=== PATIENT | male | born 1950 | race Caucasian/White ===

== ENCOUNTER 2016-10-02 08:41 | Inpatient (IN) | payer BC ==
[2016-10-02] VITALS (7 sets, daily range): BP systolic 129–143; BP diastolic 63–86
[~2016-10-02] VITALS: Ht 180.3 cm; Wt 93.2 kg
[2016-10-02] MEDS ORDERED: BACTRIM DS1 TAB PO (08:55)
[2016-10-02] MEDS ORDERED: KEFLEX500 MG PO (08:56)
[2016-10-02 10:27] LABS: HEMATOCRIT 45.4 % (39.0-50.0); HEMOGLOBIN 15.1 g/dl (14.0-18.0); IMMATURE GRANULOCYTES 2.1 % (0.0-1.0); MEAN CELL VOLUME 95.2 fL CALC (80.0-100.0); MEAN CORPUSCULAR HGB 31.7 pG CALC (26.0-32.0); MEAN CORPUSCULAR HGB CONC 33.3 g/L CALC (32.0-36.0); NEUT# 16.55 thou/uL (1.82-7.42); RED BLOOD COUNT 4.77 mill/uL (4.70-6.10); RED CELL DISTRI WIDTH 13.1 % (11.5-15.5)
[2016-10-02 10:48] LABS: ALBUMIN 3.7 g/dL (3.2-5.0); ALKALINE PHOSPHATASE 138 u/l (38-126); ANION GAP 17 (6-22 (CALC)); BUN 19 mg/dL (8-23); BUN/CREATININE RATIO 23 (12-20 (CALC)); CALCIUM 8.9 mg/dL (8.4-10.2); CARBON DIOXIDE 24 mmol/l (22-30); CHLORIDE 100 mmol/l (95-108); CREATININE 0.8 mg/dL (0.7-1.3); GFR > 60 ML/MIN (>=60 (CALC)); GFR FOR AFR.AMER. > 60 ML/MIN (>=60 (CALC)); GLUCOSE 107 mg/dL (82-115); SGOT/AST 30 u/l (19-48); SGPT/ALT 43 u/l (11-66); SODIUM 137 mmol/l (137-146); TOTAL PROTEIN 6.8 g/dL (6.3-8.2)
[2016-10-02] MEDS ORDERED: NIASPAN500 MG (12:23)
[2016-10-03 03:30] VITALS: BP 119/76
[2016-10-03 08:03] VITALS: BP 128/78
[2016-10-03 15:04] VITALS: BP 113/73
[2016-10-03 19:40] VITALS: BP 119/74
[2016-10-04 04:20] VITALS: BP 113/71
[2016-10-04 06:15] LABS: HEMATOCRIT 37.1 % (39.0-50.0); HEMOGLOBIN 12.3 g/dl (14.0-18.0); IMMATURE GRANULOCYTES 2.9 % (0.0-1.0); MEAN CELL VOLUME 96.4 fL CALC (80.0-100.0); MEAN CORPUSCULAR HGB 31.9 pG CALC (26.0-32.0); MEAN CORPUSCULAR HGB CONC 33.2 g/L CALC (32.0-36.0); NEUT# 6.47 thou/uL (1.82-7.42); RED BLOOD COUNT 3.85 mill/uL (4.70-6.10); RED CELL DISTRI WIDTH 12.9 % (11.5-15.5)
[2016-10-04 06:41] LABS: ANION GAP 10 (6-22 (CALC)); BUN 15 mg/dL (8-23); BUN/CREATININE RATIO 18 (12-20 (CALC)); CALCIUM 8.3 mg/dL (8.4-10.2); CARBON DIOXIDE 25 mmol/l (22-30); CHLORIDE 105 mmol/l (95-108); CREATININE 0.8 mg/dL (0.7-1.3); GFR > 60 ML/MIN (>=60 (CALC)); GFR FOR AFR.AMER. > 60 ML/MIN (>=60 (CALC)); GLUCOSE 103 mg/dL (82-115); POTASSIUM 4.8 mmol/l (3.5-5.1); SODIUM 135 mmol/l (137-146)
[2016-10-04 12:50] VITALS: BP 127/84
[2016-10-04] MEDS ORDERED: VANCOMYCIN1000 MG IV (15:08)
== END 2016-10-04 15:47 | disposition home or self-care (01) | DRG 603 ==
LOC: ENPENDDIS → ED 08:41 → ED-I 09:58 → ED 10:54 → MS2 10:55 → ORM 10:55 → MS2 10:55
PROVIDERS: Emergency Medicine; ADMIT Surgery; ATTEND Surgery
PROC: 0X950ZX Drainage of Left Axilla, Open Approach, Diagnostic (ICD-10-PCS; principal; 2016-10-02)
DX: L02.412 Cutaneous abscess of left axilla (principal); B95.62 Methicillin resistant Staphylococcus aureus infection as the cause of diseases classified elsewhere; Z96.653 Presence of artificial knee joint, bilateral
CPT/HCPCS: J3370

== ENCOUNTER 2021-05-13 00:08 | Emergency (ER) | payer MEDICARE ==
[~2021-05-13] VITALS: Ht 182.9 cm; Wt 97.7 kg
[~2021-05-13 00:08] MED LIST: BACTRIM DS1 TAB PO; KEFLEX500 MG PO; NIASPAN500 MG; VANCOMYCIN1000 MG IV
[2021-05-13] MEDS ORDERED: AMLODIPINE BESYL5 MG PO (01:15)
[2021-05-13] MEDS ORDERED: TRELEGY ELLIPTA1 AE1 IN (01:16)
[2021-05-13 01:38] LABS: IMMATURE GRANULOCYTES 1.4 % (0.0-5.0); MEAN CELL VOLUME 101.6 fL CALC (80.0-100.0); MEAN CORPUSCULAR HGB 33.3 pG CALC (26.0-32.0); MEAN CORPUSCULAR HGB CONC 32.8 g/dL CAL (32.0-36.0); NEUT# 14.36 thou/uL (1.82-7.42); RED BLOOD COUNT 4.5 mill/uL (4.70-6.10); RED CELL DISTRI WIDTH 12.6 % (11.5-15.5)
[2021-05-13 01:39] LABS: ALBUMIN 4.1 g/dL (3.2-5.0); ANION GAP 17 (6-22 (CALC)); BUN 19 mg/dL (8-23); BUN/CREATININE RATIO 19 (12-20 (CALC)); CARBON DIOXIDE 25 mmol/l (22-30); CHLORIDE 99 mmol/l (95-108); ETHYL ALCOHOL 72 mg/dl (0-30); GFR > 60 ML/MIN (>=60 (CALC)); GFR FOR AFR.AMER. > 60 ML/MIN (>=60 (CALC)); POTASSIUM 4.3 mmol/l (3.5-5.1); SGOT/AST 28 u/l (19-48); SODIUM 137 mmol/l (137-146); TOTAL PROTEIN 7.1 g/dL (6.3-8.2)
[2021-05-13 01:42] LABS: ALKALINE PHOSPHATASE 64 u/l (38-126); BILIRUBIN, TOTAL 0.4 mg/dL (0.0-1.4)
[2021-05-13 01:50] LABS: HEMATOCRIT 45.7 % (39.0-50.0)
[2021-05-13 01:53] LABS: ACT PARTIAL THROMBO TIME 26.2 SECONDS (20.0-32.5); INTERNATIONAL NORMALIZED RATIO 0.9 RATIO (0.7-1.3); PROTHROMBIN TIME 9.3 SECONDS (9.0-12.5)
[2021-05-13 02:27] VITALS: BP 129/64
[2021-05-13] MEDS ORDERED: LORTAB5 PO (02:27)
== END 2021-05-13 02:56 | disposition home or self-care (01) ==
LOC: ED 00:08
PROVIDERS: Family Medicine
PROC: 0HQ0XZZ Repair Scalp Skin, External Approach (ICD-10-PCS; principal; 2021-05-13)
DX: S01.01XA Laceration without foreign body of scalp, initial encounter (principal); S22.42XA Multiple fractures of ribs, left side, initial encounter for closed fracture; F10.129 Alcohol abuse with intoxication, unspecified; I10 Essential (primary) hypertension; W19.XXXA Unspecified fall, initial encounter; Y92.009 Unspecified place in unspecified non-institutional (private) residence as the place of occurrence of the external cause